=== PATIENT | male | born 1945 | race Caucasian/White ===

== ENCOUNTER 2018-06-10 13:41 | Inpatient (IN) | payer MEDICARE, SELFPAY ==
[2018-06-10 13:48] VITALS: BMI 26.7
[2018-06-10] MEDS ORDERED: HYDROcodone/Acetaminophen 5/325 mg Tablet PO PRN (13:48)
[2018-06-10 14:22] LABS: #Lymphocytes 1.3 thou/uL (1.20-3.40); #Monocytes 0.4 thou/uL (0.11-0.59); #Neutrophils 10.2 thou/uL (1.40-6.50); %Basophils 0.1 % (0.0-1.0); %Eosinophils 0.2 % (0.0-10.0); %Lymphocytes 10.9 % (21.0-51.0); %Monocytes 3.7 % (0.0-10.0); %Neutrophils 85.1 % (42.0-75.0); Hemoglobin 15.5 g/dL (14.0-18.0); Mean Corpuscular HGB CONC 32.7 g/dL (32.0-36.0); Mean Corpuscular Hemoglobin 32.5 pg (27.0-31.0); Mean Corpuscular Volume 99.5 fL (78.0-98.0); Mean Platelet Volume 9.1 fL (7.4-10.4); Platelet Count 208 thou/uL (130-400); RBC Distribution Width 12.4 % (11.5-14.5); Red Blood Cell (RBC) Count 4.78 mill/uL (4.70-6.10); White Blood Cell (WBC) Count 11.9 thou/uL (4.8-10.8)
[2018-06-10 14:47] LABS: ALT (SGPT) 32 U/L (8-55); AST (SGOT) 30 U/L (5-34); Albumin 3.7 g/dL (3.4-4.8); Alkaline Phosphatase 90 U/L (40-150); Anion Gap 10 mmol/L (10-20); BUN (Urea Nitrogen) 16 mg/dL (8.4-25.7); Calc. Creatinine Clearance 106 mL/min (70-130); Calcium 9.1 mg/dL (7.8-10.44); Carbon Dioxide 24 mmol/L (23-31); Chloride 107 mmol/L (98-107); Estimated GFR-MDRD 88; Globulin 2.7 g/dL (2.4-3.5); Glucose 164 mg/dL (83-110); Magnesium 2.4 mg/dL (1.6-2.6); Potassium 4.1 mmol/L (3.5-5.1); Protein, Total 6.4 g/dL (5.8-8.1); Sodium 137 mmol/L (136-145)
--- NOTE | 2018-06-10 15:02 | RAD ---
RADIOGRAPH CHEST 2 VIEWS: Date: 06/10/18 HISTORY: 72-year-old male with COPD. FINDINGS: The thoracic aorta is tortuous and ectatic. There is no evidence of air space density, pneumothorax, or pulmonary edema. There is no cardiomegaly or pleural effusion. IMPRESSION: 1. No acute cardiopulmonary findings. 2. Ectasia of thoracic aorta. jn [] POS: [facility]
[2018-06-10 15:41] LABS: Bilirubin Negative (Negative); Blood, Urine Negative (Negative); Clarity CLEAR (Clear); Glucose, Urine (Dipstick) Negative (Negative); Leukocyte Negative (Negative); Nitrite Negative (Negative); Protein, Urine (Dipstick) Negative (Neg-Trace); Specific Gravity, Urine 1.024 (1.002-1.036); pH, Urine 6.5 (5.0-9.0)
[2018-06-10] MEDS: cefTRIAXone\\ROCEPHIN 1 GM in Sodium Chloride 0.9% 100 ML SLOW IVP SCH (15:45)
[2018-06-10] MEDS: Benzonatate 100 MG CAP PO SCH ×2 (15:45→20:33)
[2018-06-10] MEDS: methylPREDNISolone Sod Succ/PF 125 MG/2 ML VIAL IVP SCH (17:05)
[2018-06-10] MEDS: Budesonide 0.5 MG/2 ML NEB NEB SCH (18:03)
[2018-06-10] MEDS: guaiFENesin ER 600 MG TAB PO SCH (20:33)
[2018-06-11] MEDS: methylPREDNISolone Sod Succ/PF 125 MG/2 ML VIAL IVP SCH ×4 (00:07→18:16)
[2018-06-11 04:39] LABS: #Monocytes 0.3 thou/uL (0.11-0.59); #Neutrophils 13.1 thou/uL (1.40-6.50); %Basophils 0.2 % (0.0-1.0); %Eosinophils 0.1 % (0.0-10.0); %Lymphocytes 6.8 % (21.0-51.0); %Neutrophils 90.9 % (42.0-75.0); Hemoglobin 15.3 g/dL (14.0-18.0); Mean Corpuscular HGB CONC 31.8 g/dL (32.0-36.0); Mean Corpuscular Hemoglobin 31.8 pg (27.0-31.0); Mean Corpuscular Volume 99.9 fL (78.0-98.0); Mean Platelet Volume 9.4 fL (7.4-10.4); Platelet Count 230 thou/uL (130-400); RBC Distribution Width 12.4 % (11.5-14.5); Red Blood Cell (RBC) Count 4.82 mill/uL (4.70-6.10); White Blood Cell (WBC) Count 14.4 thou/uL (4.8-10.8)
[2018-06-11 04:48] LABS: Glucose Accucheck Confirmation 158 mg/dl (83-110)
[2018-06-11] MEDS: Budesonide 0.5 MG/2 ML NEB NEB SCH ×2 (06:39→18:34)
[2018-06-11] MEDS: guaiFENesin ER 600 MG TAB PO SCH ×2 (08:15→19:56)
[2018-06-11] MEDS: Benzonatate 100 MG CAP PO SCH ×3 (08:16→19:57)
[2018-06-11] MEDS: Flecainide 50 MG TAB PO SCH (08:16)
[2018-06-11] MEDS: cefTRIAXone\\ROCEPHIN 1 GM in Sodium Chloride 0.9% 100 ML SLOW IVP SCH (15:00)
[2018-06-11] MEDS: Diabetic Tussin 200 MG/10 ML UDCUP PO PRN ×2 (15:04→19:56)
[2018-06-11] MEDS: Docusate 100 MG CAP PO SCH (19:57)
[2018-06-11] MEDS ORDERED: Zolpidem Tartrate 5 MG TAB PO SCH (21:00)
[2018-06-12] MEDS: methylPREDNISolone Sod Succ/PF 125 MG/2 ML VIAL IVP SCH ×5 (00:40→23:16)
[2018-06-12 04:21] LABS: Glucose Accucheck Confirmation 161 mg/dl (83-110)
[2018-06-12 04:39] LABS: Hemoglobin 15.1 g/dL (14.0-18.0); Mean Corpuscular HGB CONC 32.1 g/dL (32.0-36.0); Mean Corpuscular Hemoglobin 31.9 pg (27.0-31.0); Mean Corpuscular Volume 99.4 fL (78.0-98.0); Mean Platelet Volume 9.4 fL (7.4-10.4); Platelet Count 251 thou/uL (130-400); RBC Distribution Width 12.8 % (11.5-14.5); Red Blood Cell (RBC) Count 4.74 mill/uL (4.70-6.10); White Blood Cell (WBC) Count 24.7 thou/uL (4.8-10.8)
[2018-06-12 04:40] LABS: Band 5 % (5-11); Lymphocytes 6 % (21-51); MDiff Complete? YES; Monocytes 4 % (0-10); Neutrophil 85 % (42-75); PLT Morphology Comment Appears Adequate
[2018-06-12] MEDS: Diabetic Tussin 200 MG/10 ML UDCUP PO PRN ×3 (06:23→20:46)
[2018-06-12] MEDS: Budesonide 0.5 MG/2 ML NEB NEB SCH ×2 (07:08→19:23)
[2018-06-12] MEDS: Docusate 100 MG CAP PO SCH ×2 (09:03→20:44)
[2018-06-12] MEDS: guaiFENesin ER 600 MG TAB PO SCH ×2 (09:03→20:44)
[2018-06-12] MEDS: Flecainide 50 MG TAB PO SCH (09:03)
[2018-06-12] MEDS: Benzonatate 100 MG CAP PO SCH ×3 (09:03→20:43)
[2018-06-12] MEDS ORDERED: Azithromycin 500 MG in Sodium Chloride 0.9% 250 ML 250 ML IVPB SCH (11:00)
--- NOTE | 2018-06-12 12:06 | RAD ---
TWO VIEW CHEST: COMPARISON: 06/10/2018. INDICATION: COPD. FINDINGS: There is no lobar consolidation, effusion, or pneumothorax. Cardiac silhouette is stable. IMPRESSION: No focal consolidation. POS: [facility]
[2018-06-12] MEDS: cefTRIAXone\\ROCEPHIN 1 GM in Sodium Chloride 0.9% 100 ML SLOW IVP SCH (15:36)
[2018-06-12] MEDS ORDERED: Fleet Enema 133 ML BOT FS PRN (17:36)
[2018-06-12] MEDS ORDERED: Milk Of Magnesia 30 ML UDCUP PO SCH (17:45)
[2018-06-12] MEDS: Temazepam 15 MG CAP PO SCH (20:44)
[2018-06-12] MEDS ORDERED: Bisacodyl 5 MG TAB PO SCH (21:00)
[2018-06-13 04:44] LABS: Glucose Accucheck Confirmation 143 mg/dl (83-110)
[2018-06-13 05:02] LABS: Band 3 % (5-11); Hemoglobin 15.2 g/dL (14.0-18.0); Lymphocytes 4 % (21-51); MDiff Complete? YES; Macrocytosis SLIGHT = 6-15 cells (100X) (0-5/hpf); Mean Corpuscular HGB CONC 32.7 g/dL (32.0-36.0); Mean Corpuscular Hemoglobin 32.9 pg (27.0-31.0); Mean Platelet Volume 9.4 fL (7.4-10.4); Monocytes 1 % (0-10); Neutrophil 92 % (42-75); PLT Morphology Comment Appears Adequate; Platelet Count 245 thou/uL (130-400); RBC Distribution Width 12.9 % (11.5-14.5); Red Blood Cell (RBC) Count 4.61 mill/uL (4.70-6.10)
[2018-06-13] MEDS: methylPREDNISolone Sod Succ/PF 125 MG/2 ML VIAL IVP SCH ×4 (06:00→23:50)
[2018-06-13] MEDS: Budesonide 0.5 MG/2 ML NEB NEB SCH ×2 (06:26→19:07)
[2018-06-13] MEDS: Flecainide 50 MG TAB PO SCH (08:38)
[2018-06-13] MEDS: guaiFENesin ER 600 MG TAB PO SCH ×2 (08:38→20:18)
[2018-06-13] MEDS: Docusate 100 MG CAP PO SCH ×2 (08:38→20:18)
[2018-06-13] MEDS: Diabetic Tussin 200 MG/10 ML UDCUP PO PRN ×2 (08:39→17:28)
[2018-06-13] MEDS: Benzonatate 100 MG CAP PO SCH ×3 (08:40→20:17)
--- NOTE | 2018-06-13 08:59 | HP ---
DATE OF ADMISSION: 06/10/2018 CHIEF COMPLAINT: Exacerbation of chronic obstructive pulmonary disease and bronchitis. HISTORY OF PRESENT ILLNESS: The patient is a 72-year-old male who came to see Dr. Salinas on the day prior to admission with a week-long history of increasing productive cough and dyspnea. He has a very extensive pack year smoking history and has quit smoking greater than 7 years ago. This particular episode as mentioned began 5-7 days ago and has been steadily progressing in the office. He is noted to have diminished breath sounds and productive phlegm with his cough. He admitted to having low grade fevers. Denies nausea, vomiting, or diarrhea. He was placed on Levaquin and given an injection of steroids suggested that he uses nebulizer regularly and mucolytics; however, over the next 24 hours, he got much worse instead of improving such that he contacted Dr. Salinas for possible admission to the hospital. After further evaluation, it was decided that he qualified hospital admission due to failure of outpatient care. PAST MEDICAL HISTORY: Includes high cholesterol and COPD. He has had surgery on his left knee, left shoulder, right elbow, right tibia, cardiac ablation in 2004, as well as this year with [place] [facility] in January. He also had a left heart catheterization in January as well for PVCs and sinus tachycardia. He also had a history of atrial fibrillation, osteoarthritis of the knees and shoulders. He has recently developed hypertension and has not been compliant with his Bystolic. ALLERGIES: The patient has no known drug allergies. SOCIAL HISTORY: Remote smoker, quitting in 1983, who was 3 packs per day prior to that. 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 No significant alcohol intake. MEDICATIONS ON ADMISSION: He has been taking Pulmicort regularly, Spiriva 18 mcg daily, Zocor 10 mg at bedtime, and Bystolic 10 mg. He most recently was started on Omnicef 350 b.i.d. and given a shot of Rocephin 1 gram as well as Decadron 4 mg. He has not responded to outpatient treatment. REVIEW OF SYSTEMS: General: He is fatigue, malaise, short-winded with any exertion with chronic cough. HEENT: Denies any pressure pain, drainage, or ulcers in his ears, nose, or throat. Neck: Denies pain with range of motion. Chest: Feels chronically short-winded with chronic cough. Cardiovascular: Denies palpitations or chest pain at this time. Abdomen: Denies nausea, vomiting, or diarrhea. Genitourinary: Denies dysuria or blood in urine or stool. Musculoskeletal: Has diffuse pain in his major joints which is old, but denies any particular new weakness. Skin: No new rashes or lesions. Neurologic: No trouble with mentation, focus, or paresthesias. PHYSICAL EXAMINATION: VITAL SIGNS: At the time of admission, he is currently afebrile. Respiratory rate at 22. Pulse at 105. GENERAL: This is an elderly, alert, responsive, male. HEENT: Atraumatic, but he has sunken temporal membranes. His eyes are sunken in their sockets and his temporal wasting noted. TMs, nares, pharynx are clear. NECK: Supple, trachea midline. CHEST: With diminished breath sounds throughout with tight wheezing and rhonchi throughout, cough noted with thick mucus. HEART: Regular rate and rhythm. No murmur. ABDOMEN: Soft, nontender without hepatosplenomegaly. GENITOURINARY: Deferred. EXTREMITIES: With muscular wasting noted. Good range of motion persist. SKIN: Without acute rashes or lesions. NEUROLOGIC: Cranial nerves are intact. Gait normal. Cerebellar function was intact. Mental status is clear. IMAGING: Chest x-ray shows no acute cardiovascular issues. He has a tortuous aorta. Lung ambriz are clear. LABORATORY DATA: WBCs are elevated at 11.9 with a left shift. ASSESSMENT: 1. Exacerbation of chronic obstructive pulmonary disease. 2. Bronchitis - failing outpatient treatment. 3. Chronic arrhythmia - status post ablation. 4. Diffuse osteoarthritis. CURRENT MEDICATIONS: DuoNeb treatments q.4 hours, Pulmicort 0.5 mg q.12 hours, Solu-Medrol 80 mg IV q.6 hours and serial reevaluation. We will also have some Tessalon Perles as needed for cough and be maintained on his other routine medicines as well. MTDD
[2018-06-13] MEDS: Doxycycline 100 MG CAP PO SCH ×2 (09:37→20:18)
[2018-06-13] MEDS: cefTRIAXone\\ROCEPHIN 1 GM in Sodium Chloride 0.9% 100 ML SLOW IVP SCH (14:54)
[2018-06-13] MEDS: Temazepam 15 MG CAP PO SCH (20:18)
[2018-06-14] MEDS: methylPREDNISolone Sod Succ/PF 125 MG/2 ML VIAL IVP SCH (05:12)
[2018-06-14] MEDS: Budesonide 0.5 MG/2 ML NEB NEB SCH ×2 (06:25→18:37)
[2018-06-14 06:33] LABS: Glucose Accucheck Confirmation 131 mg/dl (83-110)
[2018-06-14 06:56] LABS: Hemoglobin 15.8 g/dL (14.0-18.0); Lymphocytes 14 % (21-51); MDiff Complete? YES; Mean Platelet Volume 8.5 fL (7.4-10.4); Metamyelocyte 1 % (0-0); Monocytes 5 % (0-10); Neutrophil 80 % (42-75); PLT Morphology Comment Appears Adequate; Platelet Count 245 thou/uL (130-400); Red Blood Cell (RBC) Count 4.93 mill/uL (4.70-6.10); White Blood Cell (WBC) Count 27.7 thou/uL (4.8-10.8)
[2018-06-14] MEDS: guaiFENesin ER 600 MG TAB PO SCH ×2 (08:01→20:35)
[2018-06-14] MEDS: Docusate 100 MG CAP PO SCH ×2 (08:01→20:36)
[2018-06-14] MEDS: Doxycycline 100 MG CAP PO SCH ×2 (08:01→20:35)
[2018-06-14] MEDS: Flecainide 50 MG TAB PO SCH (08:02)
[2018-06-14] MEDS: Benzonatate 100 MG CAP PO SCH ×3 (08:02→20:34)
[2018-06-14] MEDS: cefTRIAXone\\ROCEPHIN 1 GM in Sodium Chloride 0.9% 100 ML SLOW IVP SCH (14:12)
[2018-06-14] MEDS: Temazepam 15 MG CAP PO SCH (20:36)
[2018-06-14] MEDS: Diabetic Tussin 200 MG/10 ML UDCUP PO PRN (21:58)
[2018-06-15 05:49] LABS: Glucose Accucheck Confirmation 123 mg/dl (83-110)
[2018-06-15 05:54] LABS: Hemoglobin 15.9 g/dL (14.0-18.0); Lymphocytes 17 % (21-51); MDiff Complete? YES; Macrocytosis SLIGHT = 6-15 cells (100X) (0-5/hpf); Mean Corpuscular HGB CONC 31.4 g/dL (32.0-36.0); Mean Corpuscular Hemoglobin 31.9 pg (27.0-31.0); Mean Platelet Volume 8.8 fL (7.4-10.4); Monocytes 2 % (0-10); Neutrophil 76 % (42-75); PLT Morphology Comment Appears Adequate; Platelet Count 211 thou/uL (130-400); Polychromasia SLIGHT = 2-3 cells (100X) (0-2/hpf); RBC Distribution Width 13.1 % (11.5-14.5); Reactive Lymphocytes 5 % (0-10); Red Blood Cell (RBC) Count 4.98 mill/uL (4.70-6.10); White Blood Cell (WBC) Count 29.9 thou/uL (4.8-10.8)
[2018-06-15] MEDS: Budesonide 0.5 MG/2 ML NEB NEB SCH ×2 (06:42→23:56)
[2018-06-15] MEDS: Flecainide 50 MG TAB PO SCH (08:22)
[2018-06-15] MEDS: Docusate 100 MG CAP PO SCH ×2 (08:22→20:09)
[2018-06-15] MEDS: Doxycycline 100 MG CAP PO SCH ×2 (08:22→20:09)
[2018-06-15] MEDS: guaiFENesin ER 600 MG TAB PO SCH ×2 (08:22→20:09)
[2018-06-15] MEDS: Benzonatate 100 MG CAP PO SCH ×3 (08:22→20:09)
--- NOTE | 2018-06-15 10:56 | CON ---
DATE OF CONSULTATION: 06/15/2018 CONSULTING PHYSICIAN: Dr. Benito Salinas REASON FOR CONSULTATION: Elevated white count and COPD exacerbation. HISTORY OF PRESENT ILLNESS: Mr. Perdomo is well known to me from previous visits to the office. He was admitted over the weekend with increasing wheezing, cough, and shortness of breath. This was re fractory to outpatient therapy. Although he has been improving there is concern over an elevated whi te blood cell count. Of note, his white blood cell count was relatively normal at the time of admiss ion. The patient has been receiving IV antibiotics, nebulization therapy and IV steroids. He says h e feels somewhat better in terms of his breathing, but he is still very weak. PAST MEDICAL HISTORY: 1. COPD. 2. Hyperlipidemia. 3. Osteoarthritis. 4. Atrial flutter/atrial fibrillation. 5. Hypertension. PAST SURGICAL HISTORY: 1. Cardiac ablation. 2. Multiple orthopedic procedures. SOCIAL HISTORY: Former smoker, quit in 1983. 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 MEDICATIONS PRIOR TO ADMISSION: Pulmicort, Spiriva. He is supposed to be on Breo or Trilogy, but is not taking it as he cannot afford the medication. He is also taking Zocor and Bystolic. REVIEW OF SYSTEMS: Otherwise, negative. PHYSICAL EXAMINATION: VITAL SIGNS: Temperature 97.5, pulse 94, respirations 20, O2 sat 98% , blood pressure 155/90. HEENT: Pupils react. Sclerae icteric. Oropharynx clear. NECK: Without adenopathy or JVD. LUNGS: Clear without wheezing or rhonchi. CARDIAC: S1, S2 regular. No murmur. ABDOMEN: Soft, nontender. EXTREMITIES: No clubbing, cyanosis, or edema. LABORATORY DATA: White blood cell count 29.9, hematocrit 50.5, platelet count 211. Sodium 137, pota ssium 4.1, BUN 16, creatinine 0.8, glucose 164. Chest x-ray showed no mass, effusion or infiltrate. ASSESSMENT: 1. Chronic obstructive pulmonary disease exacerbation. 2. Leukocytosis. I think probably a side effect of his steroids. I do not see anything else going on. I do not think he has a resistant infection. RECOMMENDATIONS: 1. Continue to decrease steroids. 2. Since he cannot afford the Breo or Trilogy, I have told him to maybe consider Brovana since Part B Medicare will pay for that. He could do this with the Pulmicort at home. 3. I agree with the antibiotics and other treatments. I have cut his steroid dose in half. I think he can probably go home by tomorrow if all else looks fine.
--- NOTE | 2018-06-15 14:33 | PQF ---
CLINICAL DOCUMENTATION IMPROVEMENT CLARIFICATION FORM: ICD-10 Updated PLEASE DO AN ADDENDUM TO THE PROGRESS NOTE WITH ANY DOCUMENTATION UPDATES OR ADDITIONS AND CARRY THROUGH TO DC SUMMARY. THANK YOU. Date: 06/15 ATTN: DR. IVELISSE LOPEZ Please exercise your independent, professional judgment in responding to the clarification form. Clinical indicators are provided on the bottom of this form for your review Please check appropriate box(s): [ x ] Protein Calorie Malnutrition: [ ] Mild [ x ] Moderate [ ] Severe [ ] Other Malnutrition (please specify) __ [ ] Underweight without malnutrition [ ] Cachexia [ ] Other diagnosis [ ] Unable to determine CLINICAL INDICATORS - SIGNS / SYMPTOMS / LABS PHYSICIAN H&P 06/10: PHYSICAL EXAM: HEENT: HE HAS SUNKEN TEMPORAL MEMBRANES. HIS EYES ARE SUNKEN IN THIER SOCKETS & TEMPORAL WASTING NOTED. EXTREMITIES: WITH MUSCULAR WASTING NOTED MICA MINER ASSESSMENT 06/11: TRIGGERED FOR WEIGHT LOSS; PT FEELS HIS 20 LB WT LOSS SINCE 02/07 HAS BEEN D/T TEETH EXTRACTION AND NEW DENTURES. -9% WT LOSS OVER PAST 4 MONTHS PER PATIENT RISK FACTORS: 20 LB WEIGHT LOSS COPD W/EXACERBATION TREATMENT: MICA MINER ASSESSMENT NUTRITIONAL SUPPLEMENT (ENSURE ENLIVE BID 06/11 - PRESENT) Moderate Malnutrition (in acute illness) Energy Intake: <75% of estimated energy requirement for > 7 days Weight Loss: 1-2%/1 week; 5%/ 1 month; 7.5%/3 months Other: mild body fat loss; mild muscle mass loss; mild fluid accumulation; Severe Malnutrition (in acute illness) Energy Intake: < 50% of estimated energy requirement for > 5 days Weight Loss: >1-2%/1 week; >5%/1 month; >7.5%/3 months Other: moderate body fat loss; moderate muscle mass loss; moderate- severe fluid accumulation; measurably reduced reviewer sales strength Moderate Malnutrition (in chronic illness) Energy Intake: <75% of estimated energy requirement for >1 month Weight Loss: 5%/1 month; 7.5%/3 months; 10%/6 months; 20%/1 year Other: mild body fat loss; mild muscle mass loss; mild fluid accumulation Severe Malnutrition (in chronic illness) Energy Intake: <75% of estimated energy requirement for >1 month Weight Loss: >5%/1 month; >7.5%/3 months; >10%/6 months; >20%/1 year Other: severe body fat loss; severe muscle mass loss; severe fluid accumulation; measurably reduced reviewer sales strength THANK YOU! Lyric (This form is maintained as a part of the permanent medical record) 2014 [employer]. All Rights Reserved Lyric Pearson RN, BSN [email or web address] Office: [phone] [facility]
[2018-06-15] MEDS: cefTRIAXone\\ROCEPHIN 1 GM in Sodium Chloride 0.9% 100 ML SLOW IVP SCH (15:03)
[2018-06-15] MEDS: Temazepam 15 MG CAP PO SCH (20:09)
[2018-06-15] MEDS: Arformoterol 15 MCG/2 ML NEB NEB SCH (23:56)
[2018-06-16 05:20] LABS: Glucose Accucheck Confirmation 122 mg/dl (83-110)
[2018-06-16 06:05] LABS: Band 9 % (5-11); Hemoglobin 16.4 g/dL (14.0-18.0); Lymphocytes 8 % (21-51); MDiff Complete? YES; Mean Corpuscular HGB CONC 31.9 g/dL (32.0-36.0); Mean Platelet Volume 8.5 fL (7.4-10.4); Metamyelocyte 1 % (0-0); Monocytes 18 % (0-10); Myelocyte 1 % (0-0); Neutrophil 63 % (42-75); Platelet Count 233 thou/uL (130-400); RBC Distribution Width 13.4 % (11.5-14.5); Red Blood Cell (RBC) Count 5.11 mill/uL (4.70-6.10); White Blood Cell (WBC) Count 29.9 thou/uL (4.8-10.8)
[2018-06-16] MEDS: Budesonide 0.5 MG/2 ML NEB NEB SCH (07:01)
[2018-06-16] MEDS: Arformoterol 15 MCG/2 ML NEB NEB SCH (07:01)
[2018-06-16 07:19] VITALS: BP 138/88; TEMP 97.5
[2018-06-16] MEDS: Doxycycline 100 MG CAP PO SCH (09:05)
[2018-06-16] MEDS: Benzonatate 100 MG CAP PO SCH (09:06)
[2018-06-16] MEDS: Docusate 100 MG CAP PO SCH (09:06)
[2018-06-16] MEDS: guaiFENesin ER 600 MG TAB PO SCH (09:06)
[2018-06-16] MEDS: Flecainide 50 MG TAB PO SCH (09:06)
== END 2018-06-16 13:30 | disposition home or self-care (01) | DRG 191 ==
LOC: T4-B 13:41
PROVIDERS: ADMIT Specialist; ATTEND Specialist
DX: J44.1 Chronic obstructive pulmonary disease with (acute) exacerbation (principal); I48.92 Unspecified atrial flutter; Z87.891 Personal history of nicotine dependence; E78.00 Pure hypercholesterolemia, unspecified; I48.91 Unspecified atrial fibrillation; M17.0 Bilateral primary osteoarthritis of knee; M19.012 Primary osteoarthritis, left shoulder; M19.011 Primary osteoarthritis, right shoulder; I10 Essential (primary) hypertension; E78.5 Hyperlipidemia, unspecified
CPT/HCPCS: 36415; 71046; 80053; 81003; 82947; 83735; 85025; 87040; 90471; 90662; 94640; G0008; J0456; J0696; J2920; J2930; J7050; J7620; J7626

== ENCOUNTER 2022-07-20 13:53 | Emergency (ER) | payer MEDICARE, OTHER ==
[~2022-07-20 13:53] MED LIST: Iopamidol-370 76% 500 ML 1 ML ONE
[2022-07-20 15:31] LABS: #Basophils 0.1 thou/uL (0.0-0.2); #Eosinphils 0.4 thou/uL (0.0-0.7); #Lymphocytes 3.5 thou/uL (1.20-3.40); #Monocytes 1.4 thou/uL (0.11-0.59); #Neutrophils 6.5 thou/uL (1.40-6.50); %Basophils 0.6 % (0.0-1.0); %Eosinophils 3.6 % (0.0-10.0); %Lymphocytes 29.2 % (21.0-51.0); %Neutrophils 54.6 % (42.0-75.0); Hemoglobin 16.4 g/dL (14.0-18.0); Mean Corpuscular HGB CONC 33.6 g/dL (32.0-36.0); Mean Corpuscular Hemoglobin 34.3 pg (27.0-31.0); Mean Platelet Volume 9.6 fL (7.4-10.4); Platelet Count 211 10x3/uL (130-400); RBC Distribution Width 12.3 % (11.5-14.5); Red Blood Cell (RBC) Count 4.78 mill/uL (4.70-6.10); White Blood Cell (WBC) Count 11.9 10x3/uL (4.8-10.8)
[2022-07-20 15:48] LABS: ALT (SGPT) 45 U/L (8-55); AST (SGOT) 42 U/L (5-34); Albumin 3.5 g/dL (3.4-4.8); Alkaline Phosphatase 62 U/L (40-110); Anion Gap 12 mmol/L (10-20); BUN (Urea Nitrogen) 19 mg/dL (8.4-25.7); Bilirubin, Total 0.8 mg/dL (0.2-1.2); Calc. Creatinine Clearance 0 mL/min (70-130); Calcium 8.6 mg/dL (7.8-10.44); Carbon Dioxide 20 mmol/L (23-31); Chloride 110 mmol/L (98-107); Estimated GFR 79; Globulin 2.5 g/dL (2.4-3.5); Glucose 85 mg/dL (83-110); Potassium 3.8 mmol/L (3.5-5.1); Sodium 138 mmol/L (136-145)
== END 2022-07-20 18:02 | disposition home or self-care (01) ==
LOC: ERS 13:53
DX: I48.0 Paroxysmal atrial fibrillation (principal); Z79.82 Long term (current) use of aspirin; Z87.891 Personal history of nicotine dependence
CPT/HCPCS: 71045; 71275; 80053; 84443; 84484; 85025; 85379; 93005; Q9967

== ENCOUNTER 2022-12-16 08:49 | Outpatient (CLI) | payer OTHER | END 2022-12-16 08:50 | disposition home or self-care (01) | LOC: RAD 08:49 | PROVIDERS: ATTEND Internal Medicine Critical Care Medicine | DX: R06.00 Dyspnea, unspecified (principal) | CPT/HCPCS: 71046 ==